=== PATIENT | male | born 1965 | race Caucasian/White ===

== ENCOUNTER 2019-03-26 16:59 | Inpatient (IN) | payer MEDICAID ==
[~2019-03-26] VITALS: Ht 154.9 cm; Wt 59.0 kg
[2019-03-26 17:08] VITALS: BP 111/79
--- NOTE | 2019-03-26 17:30 | NUR ---
BIB . AAO X4 C/O HEADACHE, FEVER, N/V/D, AND ABD PAIN X 6 DAYS. PT REPORTS LOWER ABD PAIN AND N/V/D AFTER HE EATS. PT WENT TO CLINIC ON 03/24/19 AND RECIEVED ZOFRAN AND AMOX-CLAV WITH NO RELIEF. PT WAS IN [facility] THE TUESDAY BEFORE HE GOT SICK. ABDOMEN SOFT, NON TENDER TO TOUCH. PT PUT ON FULL JUNIOR PROGRAMMER. ER TO EVALUATE PT.
[2019-03-26] MEDS ORDERED: NACL 0.9% 1,000 ML IV ONE (17:53)
[2019-03-26] MEDS ORDERED: MORPHINE SULFATE 4 MG/ML SYR IVP ONE (17:55)
[2019-03-26] MEDS ORDERED: ONDANSETRON 4 MG/2 ML VIAL IVP ONE (17:55)
--- NOTE | 2019-03-26 18:30 | NUR ---
IV INITIATED TO RAC 18 G, INTACT AND PATENT. LAB DRAWN AND GIVEN TO SUPERIOR COURT JUSTICE
[2019-03-26 18:44] LABS: BASOPHILS % (AUTO) 0.4 % (0.0-2.0); HEMATOCRIT 45.1 % (36-52); HEMOGLOBIN 15.8 g/dL (12.0-18.0); LYMPHOCYTES # (AUTO) 0.5 K/uL (2.0-11.5); LYMPHOCYTES % (AUTO) 10.9 % (20.5-51.1); MEAN CORPUSCULAR HEMOGLOBIN 33 pg (27-31); MEAN CORPUSCULAR HGB CONC 35 g/dL (33-37); MEAN CORPUSCULAR VOLUME 93.1 fL (80-94); MONOCYTES # (AUTO) 0.6 K/uL (0.8-1.0); MONOCYTES % (AUTO) 13.6 % (1.7-9.3); NEUTROPHILS # (AUTO) 3.2 K/uL (1.8-7.7); NEUTROPHILS % (AUTO) 75.1 % (42.2-75.2); PLATELET COUNT (AUTO) 114 K/uL (140-450); RED BLOOD CELL COUNT(AUTO) 4.84 MIL/uL (4.20-6.10); RED CELL DISTRIBUTION WIDTH 13.5 % (11.6-13.7); WHITE BLOOD COUNT (AUTO) 4.3 K/uL (4.8-10.8)
[2019-03-26 18:50] LABS: ANION GAP 12.8 (8-16); CARBON DIOXIDE 27.5 mmol/L (21-32); CREATININE 0.9 mg/dL (0.7-1.3); POTASSIUM 3.3 mmol/L (3.5-5.1)
[2019-03-26 18:56] LABS: ALBUMIN 3.1 g/dL (3.4-5.0); TOTAL BILIRUBIN 1.1 mg/dL (0.0-1.0)
--- NOTE | 2019-03-26 19:13 | NUR ---
Pt report given to BELLA BECKHAM. Transfer of care at this time.
--- NOTE | 2019-03-26 19:14 | NUR ---
REPORT RECEIVED FROM BELLA ECKERT. TRANSFER OF CARE AT THIS TIME.
--- NOTE | 2019-03-26 19:20 | NUR ---
PT LYING COMFORTABLY AWAKE, ALERT IN BED WITH VSS. FAMILY AT BEDSIDE. SKIN PINK, WARM, DRY. BREATHING EVEN, UNLABORED.
[2019-03-26] MEDS ORDERED: MORPHINE SULFATE 2 MG/ML SYR IVP PRN (19:25)
[2019-03-26] MEDS ORDERED: ONDANSETRON 4 MG/2 ML VIAL IM/IVP PRN (19:25)
[2019-03-26] MEDS ORDERED: FAMOTIDINE 20 MG/2 ML VIAL IV PRN (19:25)
[2019-03-26] MEDS ORDERED: LORazepam 2 MG/ML VIAL IM/IVP PRN (19:25)
[2019-03-26] MEDS ORDERED: DOCUSATE SODIUM 100 MG GELCAP PO PRN (19:25)
[2019-03-26] MEDS ORDERED: HYDROcodone/APAP 5/325 MG 1 TAB TAB PO PRN (19:25)
--- NOTE | 2019-03-26 19:51 | NUR ---
Patient will be admitted to care of Dr. Cee. Admited to [facility]. Will go to room 119B. Belongings list completed. Report to BELLA Newman.
[2019-03-26 19:53] LABS: PROTHROMBIN TIME 10.9 secs (10.8-13.4)
--- NOTE | 2019-03-26 19:55 | NUR ---
ADMITTED 54M FROM ER. CAME IN @1945 BY WHEELCHAIR AND ACCOMPANIED BY FAMILY MEMBERS. MED SURG PT. AWAKE,ALERT AND ORIENTED X4. AMBULATORY. CAME DUE TO ABDOMINAL PAIN .NV . PT ALSO WITH DIARRHEA FOR FEW DAYS. HAS HL ON ERT AC G#18, CLEAR AND PATENT. DR. MILLER CAME IN AND DO ASSESSMENT ON PT. PLAN OF CARE DISCUSSED . BED ON LOWEST POSITION. SIDE RAILS UP X2. CALL LIGHT PLACED WITHIN EASY REACH. WILL CONTINUE TO MONITOR WHILE FOLLOWING UP ADMIT ORDERS.
[2019-03-26] MEDS ORDERED: PROMETHAZINE 25 MG/ML VIAL IM/IVP PRN (20:15)
[2019-03-26] MEDS: DEXT 5% /NACL 0.9% 1,000 ML IV SCH (20:23)
[2019-03-26] MEDS ORDERED: AMOX1TAB8 PO (20:28)
[2019-03-26] MEDS ORDERED: ONDA8TAB PO (20:28)
[2019-03-26 20:33] VITALS: BP 129/58
[2019-03-26] MEDS: ACETAMINOPHEN 325 MG TAB PO PRN (20:34)
--- NOTE | 2019-03-26 20:34 | NUR ---
PT TEMP 102.8 . COOLING MEASURES DONE AND TYLENOL P[O GIVEN ORDERED. WILL CONTINUE TO MONITOR.
[2019-03-26] MEDS ORDERED: cefTRIAXone 2,000 MG in DEXTROSE 5% 100 ML IV SCH (21:00)
[2019-03-26] MEDS ORDERED: LIDOCAINE VISCOUS 2% 20 ML UDC PO SCH (21:00)
[2019-03-26] MEDS ORDERED: DICYCLOMINE HCL LIQUID 10 MG/5 ML UDC PO SCH (21:00)
[2019-03-26] MEDS ORDERED: ALUMINUM HYD/MAG/SIMETHICONE 30 ML UDC PO SCH (21:00)
[2019-03-26] MEDS ORDERED: cefTRIAXone 2,000 MG VIAL ONE (21:11)
[2019-03-26] MEDS: FAMOTIDINE 20 MG/2 ML VIAL IV SCH (21:26)
--- NOTE | 2019-03-26 22:00 | NUR ---
NO N/V NOTED AT THIS TIME. WILL CONTINUE TO MONITOR.
[2019-03-26 23:15] VITALS: BP 100/65
--- NOTE | 2019-03-26 23:15 | NUR ---
LATEST TEMPT CHECKED RESULT 98.7 WILL CONTINUE TO MONITOR.
[2019-03-26] MEDS: metroNIDAZOLE 500 MG/NS PREMIX 100 ML IV SCH (23:20)
[2019-03-26 23:49] LABS: AMYLASE 54 U/L (25-115); FREE T4 (FREE THYROXINE) 1.05 ng/dL (0.76-1.46); LIPASE 178 U/L (73-393); MAGNESIUM 1.7 mg/dL (1.8-2.4); PHOSPHORUS 2.5 mg/dL (2.5-4.9); THYROID STIMULATING HORMONE 0.79 uIU/mL (0.34-3.74); TRIGLYCERIDES 173 mg/dL (30-150)
[2019-03-26 23:55] LABS: HDL CHOLESTEROL 4 mg/dL (40-60); LDL (CALC) 62 mg/dL (60-100)
[2019-03-26 23:59] LABS: LACTATE DEHYDROGENASE 251 U/L (85-227)
--- NOTE | 2019-03-27 01:08 | NUR ---
DR. MILLER MADE AWARE ABOUT K LEVEL 3.3 AND MAGNESIUM 1.7 HE SAID WILL ORDER RIDER.
[2019-03-27] MEDS ORDERED: MAG SULF 2000 MG/WATER PREMIX 50 ML IV SCH (01:30)
[2019-03-27] MEDS ORDERED: KCL 20 MEQ/WATER INJ PREMIX 100 ML IV SCH (01:30)
--- NOTE | 2019-03-27 02:30 | NUR ---
MADE ROUNDS. ASLEEP. MAG RIDER STILL INFUSING. NO S/S OF ANY DISCOMFORT NOTED.
[2019-03-27 03:00] VITALS: BP 110/70
[2019-03-27] MEDS: ACETAMINOPHEN 325 MG TAB PO PRN ×3 (03:05→21:13)
--- NOTE | 2019-03-27 03:05 | NUR ---
TEMP IS ELEVATED AGAIN THIS AM 102.8 .COOLING MEASURES DONE. TYLENOL 650 MG PO GIVEN . WILL CONTINUE TO MONITOR.
--- NOTE | 2019-03-27 04:45 | NUR ---
LATEST TEMP 100. WITH CONTINUOUS IVF INFUSING.
[2019-03-27] MEDS: DEXT 5% /NACL 0.9% 1,000 ML IV SCH ×3 (05:22→15:22)
[2019-03-27] MEDS: metroNIDAZOLE 500 MG/NS PREMIX 100 ML IV SCH ×3 (06:18→22:32)
--- NOTE | 2019-03-27 06:21 | NUR ---
NO DIARRHEA NOTED DURING THE NIGHT. LATEST TEMP 98.3
[2019-03-27 06:27] LABS: ANION GAP 8.8 (8-16); CARBON DIOXIDE 29.5 mmol/L (21-32); CREATININE 0.8 mg/dL (0.7-1.3); POTASSIUM 3.3 mmol/L (3.5-5.1)
--- NOTE | 2019-03-27 07:05 | NUR ---
ENDORSED PT IN STABLE CONDITION TO AM NURSE.
--- NOTE | 2019-03-27 07:06 | NUR ---
RECEIVED REPORT FROM ELECTION CLERK NURSE. PATIENT SITTING DOWN IN BED. ASSISTED PATIENT TO BATHROOM AND BACK TO BED. NO DISTRESS NOTED. DENIES ANY PAIN AT THIS TIME. AAOX4, CALM, COOPERATIVE, SKIN COLOR APPROPRIATE TO ETHNICITY, WARM TO TOUCH. RESPIRATIONS EVEN, UNLABORED, ON ROOM AIR. IV SITE INTACT, PATENT, AND INFUSING IVF PER MD ORDERS. REVIEWED PLAN OF CARE WITH PATIENT. PATIENT VERBALIZED UNDERSTANDING. SAFETY MEASURES IN PLACE, CALL LIGHT WITHIN REACH. WILL CONTINUE TO MONITOR.
[2019-03-27 07:23] LABS: BASOPHILS % (AUTO) 0.4 % (0.0-2.0); EOSINOPHILS % (AUTO) 0.1 % (0.0-4.0); HEMATOCRIT 41.7 % (36-52); HEMOGLOBIN 14.2 g/dL (12.0-18.0); LYMPHOCYTES # (AUTO) 0.4 K/uL (2.0-11.5); LYMPHOCYTES % (AUTO) 9.5 % (20.5-51.1); MEAN CORPUSCULAR HEMOGLOBIN 32 pg (27-31); MEAN CORPUSCULAR HGB CONC 34 g/dL (33-37); MEAN CORPUSCULAR VOLUME 94.4 fL (80-94); MONOCYTES # (AUTO) 0.6 K/uL (0.8-1.0); NEUTROPHILS # (AUTO) 2.9 K/uL (1.8-7.7); PLATELET COUNT (AUTO) 87 K/uL (140-450); RED BLOOD CELL COUNT(AUTO) 4.42 MIL/uL (4.20-6.10); RED CELL DISTRIBUTION WIDTH 13.4 % (11.6-13.7); WHITE BLOOD COUNT (AUTO) 3.8 K/uL (4.8-10.8)
[2019-03-27 08:00] VITALS: BP 97/66
--- NOTE | 2019-03-27 08:00 | NUR ---
PATIENT HAS BEEN SCREENED AND CATEGORIZED HIGH NUTRITION RISK. PATIENT WILL BE SEEN WITHIN 1-2 DAYS OF ADMISSION. 03/27/19-03/28/[address]
[2019-03-27] MEDS: LACTOBACILLUS RHAMNOSUS GG 1 EACH CAP PO SCH (09:15)
--- NOTE | 2019-03-27 09:18 | NUR ---
PATIENT LYING DOWN IN BED TALKING WITH FAMILY AT BEDSIDE. NO DISTRESS NOTED. DENIES ANY PAIN. SCHEDULED MEDICATIONS DUE GIVEN. WILL CONTINUE TO MONITOR.
--- NOTE | 2019-03-27 10:30 | NUR ---
PATIENT LYING DOWN IN BED SLEEPING, FAMILY MEMBER AT BEDSIDE. CONDITION UNCHANGED. WILL CONTINUE TO MONITOR.
[2019-03-27] MEDS ORDERED: KETOROLAC 30 MG/ML VIAL IM SCH (10:43)
[2019-03-27] MEDS ORDERED: POTASSIUM CHLORIDE 40 MEQ, LIDOCAINE MPF 1% - 5 mL VIAL 25 MG in NACL 0.9% 250 ML IV SCH (11:30)
--- NOTE | 2019-03-27 11:56 | NUR ---
PATIENT SITTING IN BED TALKING WITH FAMILY MEMBERS AT BEDSIDE. NO DISTRESS NOTED. COMPLAINS OF MILD HEADACHE, TYLENOL GIVEN AT THIS TIME. OTHER SCHEDULED MEDICATIONS DUE GIVEN. WILL CONTINUE TO MONITOR.
--- NOTE | 2019-03-27 13:18 | NUR ---
03/27/19 RD INITIAL ASSESSMENT COMPLETED PLEASE REFER TO NUTRITION ASSESSMENT UNDER CARE ACTIVITY FOR ESTIMATED NUTRITIONAL NEEDS. 1. CONTINUE ICE CHIPS ONLY, MEDICALLY NECESSARY 2. WHEN PATIENT IS MEDICALLY STABLE ADVANCE TO BLAND DIET TOLERATED 3. RD TO FOLLOW-UP 3-5 DAYS, MODERATE RISK TRUNG VERMA, RD
[2019-03-27 16:00] VITALS: BP 93/61
[2019-03-27] MEDS: LEVOFLOXACIN 750 MG/D5W PREMIX 150 ML IV SCH (17:04)
--- NOTE | 2019-03-27 17:07 | NUR ---
PATIENT SITTING DOWN IN BED TALKING TO FAMILY MEMBER AT BEDSIDE. NO DISTRESS NOTED. DENIES ANY PAIN. SCHEDULED MEDICATIONS DUE GIVEN. WILL CONTINUE TO MONITOR.
--- NOTE | 2019-03-27 19:23 | NUR ---
GAVE REPORT TO NETWORK PLANNER NURSE FOR CONTINUITY OF CARE. PATIENT IN STABLE CONDITION.
--- NOTE | 2019-03-27 19:24 | NUR ---
RECEIVED PT IN STABLE CONDITION FROM AM NURSE. AWAKE,ALERT AND ORIENTED X4. YAKUT SPEAKING. ON MED SURG. WITH NO C/O ANY PAIN NOR DISCOMFORT NOTED. ON CONTACT ISOLATION FOR R/O STOOL C DIFF-PENDING RESULT. HAS IVF INFUSING WELL ON THE RT AC G#18. CLEAR AND PATENT. PLAN OF CARE DISCUSSED AND VERBALIZED UNDERSTANDING. BED ON LOW POSITION. CALL LIGHT AND URINAL WITHIN EASY REACH. WILL CONTINUE TO MONITOR.
[2019-03-27 20:00] VITALS: BP 99/60
--- NOTE | 2019-03-27 20:35 | NUR ---
DR. IGNACIO CAME AND EXAMINED PT. NO NEW ORDER MADE.
[2019-03-27] MEDS: FAMOTIDINE 20 MG/2 ML VIAL IV SCH (21:09)
[2019-03-28 00:40] VITALS: BP 93/61
[2019-03-28] MEDS: DEXT 5% /NACL 0.9% 1,000 ML IV SCH ×3 (00:54→21:22)
--- NOTE | 2019-03-28 01:08 | NUR ---
PT STOOL C DIFF RESULT CAME IN-NEGATIVE FOR C DIFF TOXIN. WILL BE OUT OF ISOLATION.
--- NOTE | 2019-03-28 02:00 | NUR ---
MADE ROUNDS . PT AWAKE. NO C/O ANY PAIN NOR DISCOMFORT NOTED.
--- NOTE | 2019-03-28 04:30 | NUR ---
MADE ROUNDS. PT IS ASLEEP. NO S/S OF ANY PAIN NOTED AT THIS TIME.
[2019-03-28 06:21] LABS: ANION GAP 8.4 (8-16); CARBON DIOXIDE 26.9 mmol/L (21-32); CREATININE 0.7 mg/dL (0.7-1.3); POTASSIUM 3.3 mmol/L (3.5-5.1)
[2019-03-28] MEDS: metroNIDAZOLE 500 MG/NS PREMIX 100 ML IV SCH ×2 (06:22→14:47)
--- NOTE | 2019-03-28 06:23 | NUR ---
DUE ANTIBIOTICS THIS AM GIVEN. NO C/O ANY PAIN NOTED THIS AM.
[2019-03-28 06:38] LABS: MAGNESIUM 1.8 mg/dL (1.8-2.4); PHOSPHORUS 2.2 mg/dL (2.5-4.9)
[2019-03-28 06:55] LABS: HEMATOCRIT 40.2 % (36-52); HEMOGLOBIN 13.6 g/dL (12.0-18.0); MEAN CORPUSCULAR HEMOGLOBIN 32 pg (27-31); MEAN CORPUSCULAR HGB CONC 34 g/dL (33-37); MEAN CORPUSCULAR VOLUME 95.1 fL (80-94); PLATELET COUNT (AUTO) 105 K/uL (140-450); RED BLOOD CELL COUNT(AUTO) 4.23 MIL/uL (4.20-6.10); RED CELL DISTRIBUTION WIDTH 14.2 % (11.6-13.7)
--- NOTE | 2019-03-28 07:15 | NUR ---
ENDORSED PT IN STABLE CONDITION TO AM NURSE.
--- NOTE | 2019-03-28 07:16 | NUR ---
RECEIVED REPORT FROM LEATHER CASE FINISHER NURSE. PATIENT BRUSHING HIS TEETH ON ROOM SINK. ASSISTED PATIENT TO BATHROOM AND BACK TO BED. NO DISTRESS NOTED. DENIES ANY PAIN AT THIS TIME. AAOX4, CALM, COOPERATIVE, SKIN COLOR APPROPRIATE TO ETHNICITY, WARM TO TOUCH. RESPIRATIONS EVEN, UNLABORED, ON ROOM AIR. IV SITE INTACT, PATENT, AND INFUSING IVF PER MD ORDERS. REVIEWED PLAN OF CARE WITH PATIENT. PATIENT VERBALIZED UNDERSTANDING. SAFETY MEASURES IN PLACE, CALL LIGHT WITHIN REACH. WILL CONTINUE TO MONITOR.
[2019-03-28 08:00] VITALS: BP 92/56
[2019-03-28 08:44] LABS: MONOCYTES % (MANUAL) 11 % (5-12)
[2019-03-28 08:48] LABS: LYMPHOCYTES % (MANUAL) 16 % (20-46)
[2019-03-28] MEDS: LACTOBACILLUS RHAMNOSUS GG 1 EACH CAP PO SCH (09:13)
--- NOTE | 2019-03-28 09:13 | NUR ---
PATIENT SITTING IN BED. CONDITION UNCHANGED. SCHEDULED MEDICATIONS DUE GIVEN. WILL CONTINUE TO MONITOR.
--- NOTE | 2019-03-28 10:30 | NUR ---
PATIENT SITTING IN BED WATCHING TV. CONDITION UNCHANGED. WILL CONTINUE TO MONITOR.
--- NOTE | 2019-03-28 12:43 | NUR ---
PATIENT SITTING DOWN IN BED WITH LUNCH TRAY IN FRONT. FAMILY MEMBER AT BEDSIDE. WILL CONTINUE TO MONITOR.
[2019-03-28] MEDS ORDERED: POTASSIUM CHLORIDE 10 MEQ TABER PO SCH (13:15)
--- NOTE | 2019-03-28 13:43 | NUR ---
PATIENT SITTING IN BED WATCHING TV. NO DISTRESS NOTED. DENIES ANY PAIN. SCHEDULED MEDICATIONS DUE GIVEN. WILL CONTINUE TO MONITOR.
--- NOTE | 2019-03-28 14:50 | NUR ---
PATIENT LYING DOWN IN BED SLEEPING, AROUSABLE BY VOICE. FAMILY MEMBER AT BEDSIDE. SCHEDULED MEDICATIONS DUE GIVEN. WILL CONTINUE TO MONITOR.
[2019-03-28 16:00] VITALS: BP 103/67
[2019-03-28] MEDS: LEVOFLOXACIN 750 MG/D5W PREMIX 150 ML IV SCH (16:24)
[2019-03-28] MEDS: ACETAMINOPHEN 325 MG TAB PO PRN (17:43)
--- NOTE | 2019-03-28 17:47 | NUR ---
PATIENT COMPLAINS OF A HEADACHE. TYLENOL GIVEN AT THIS TIME. WILL CONTINUE TO MONITOR.
--- NOTE | 2019-03-28 19:45 | NUR ---
RECEIVED FROM AM RN AWAKE AND ALERT. SITTING UP ON TOP OF BED. CONVERSING WELL WITH VISITORS. NO COMPLAINTS DONE AT THIS TIME. PT. DX. OF ABDOMINAL PAIN AND DEHYDRATION . WITH IVF TO OF D5NS AT 100 ML/H. TO RAC#18. INTACT AND PATENT. ABLE TO USE CALL LIGHT FOR HELP. CALL LIGHT WITH IN REACH.
[2019-03-28] MEDS: FAMOTIDINE 20 MG/2 ML VIAL IV SCH (21:29)
[2019-03-29 00:39] VITALS: BP 104/62
--- NOTE | 2019-03-29 01:36 | NUR ---
SLEEPING AT THIS TIME. CALL LIGHT WITH IN REACH. ABLE TO VERBALIZE NEEDS WELL IN [place].
[2019-03-29] MEDS: DEXT 5% /NACL 0.9% 1,000 ML IV SCH (05:33)
--- NOTE | 2019-03-29 06:47 | NUR ---
SLEPT WELL THIS SHIFT. NO COMPLAINT DONE.
[2019-03-29 06:52] LABS: BASOPHILS % (AUTO) 0.5 % (0.0-2.0); EOSINOPHILS % (AUTO) 0.7 % (0.0-4.0); HEMATOCRIT 41.7 % (36-52); HEMOGLOBIN 14.2 g/dL (12.0-18.0); LYMPHOCYTES # (AUTO) 1.2 K/uL (2.0-11.5); LYMPHOCYTES % (AUTO) 27.8 % (20.5-51.1); MEAN CORPUSCULAR HEMOGLOBIN 32 pg (27-31); MEAN CORPUSCULAR HGB CONC 34 g/dL (33-37); MEAN CORPUSCULAR VOLUME 93.9 fL (80-94); MONOCYTES # (AUTO) 0.8 K/uL (0.8-1.0); MONOCYTES % (AUTO) 16.9 % (1.7-9.3); NEUTROPHILS # (AUTO) 2.4 K/uL (1.8-7.7); NEUTROPHILS % (AUTO) 54.1 % (42.2-75.2); PLATELET COUNT (AUTO) 148 K/uL (140-450); RED BLOOD CELL COUNT(AUTO) 4.44 MIL/uL (4.20-6.10); WHITE BLOOD COUNT (AUTO) 4.5 K/uL (4.8-10.8)
[2019-03-29 07:01] LABS: ANION GAP 13.8 (8-16); CARBON DIOXIDE 24.5 mmol/L (21-32); CREATININE 0.7 mg/dL (0.7-1.3); POTASSIUM 3.3 mmol/L (3.5-5.1)
[2019-03-29 07:09] LABS: MAGNESIUM 1.6 mg/dL (1.8-2.4); PHOSPHORUS 2.5 mg/dL (2.5-4.9)
--- NOTE | 2019-03-29 07:25 | NUR ---
RECEIVED PT FROM BARGE CAPTAIN NURSESTEVEN, PT IS AWAKE AND LYING ON THE BED, SIDE RAILS ARE UP AND CALL LIGHT WITHIN REACH, IV LINE ON THE LEFT FFA G. 20 WITH IVF D5NS INFUSING AT 100ML/HR, INTACT, PT DENIES PAIN AND NO SIGN OF DISTRESS NOTED. WILL MONITOR PT.
[2019-03-29 08:00] VITALS: BP 122/69
[2019-03-29] MEDS ORDERED: MAGNESIUM OXIDE 400 MG TAB PO SCH (09:00)
[2019-03-29] MEDS ORDERED: POTASSIUM CHLORIDE 10 MEQ TABER PO SCH (09:00)
[2019-03-29] MEDS: LACTOBACILLUS RHAMNOSUS GG 1 EACH CAP PO SCH (09:13)
--- NOTE | 2019-03-29 09:14 | NUR ---
PT IS AWAKE AND SEATED ON THE BED, ORAL MEDICATIONS WERE GIVEN, AND PT TOLERATED IT. NO SIGN OF DISTRESS NOTED, WILL MONITOR PT.
[2019-03-29] MEDS ORDERED: LEVO750T2 PO (09:18)
[2019-03-29] MEDS ORDERED: L. R1CAP PO (09:48)
--- NOTE | 2019-03-29 11:05 | NUR ---
DISCHARGED PATIENT TO HOME, DISCHARGED TEACHINGS AND MEDICATIONS INSTRUCTIONS GIVEN, PATIENT VERBALIZED UNDERSTANDING, REMOVED IV LINE AND ARMBAND, PATIENT IS STABLE AT THIS TIME.
== END 2019-03-29 11:05 | disposition home or self-care (01) | DRG 249 ==
LOC: MED 16:59 → MTU 19:28 → MMU 21:59
PROVIDERS: ADMIT General Practice; ATTEND General Practice
DX: K52.9 Noninfective gastroenteritis and colitis, unspecified (principal); E43 Unspecified severe protein-calorie malnutrition; D69.6 Thrombocytopenia, unspecified; E87.8 Other disorders of electrolyte and fluid balance, not elsewhere classified; E87.1 Hypo-osmolality and hyponatremia; F10.99 Alcohol use, unspecified with unspecified alcohol-induced disorder; E86.0 Dehydration; Z68.24 Body mass index [BMI] 24.0-24.9, adult; E87.6 Hypokalemia; Z87.891 Personal history of nicotine dependence
CPT/HCPCS: 36415; 71045; 80048; 80053; 82140; 82150; 82272; 82550; 83036; 83605; 83615; 83690; 83735; 83880; 84100; 84439; 84443; 84484; 85025; 85610; 85730; 87015; 87040; 87045; 87070; 87081; 89055; 96374; 96375; 99285; G0482; J0696; J1885; J1956; J2001; J2270; J2405; J3475; J3480; J3490; J7030; J7042; J7060; Q0092